=== PATIENT | female | born 1940 | race Caucasian/White ===

== ENCOUNTER 2017-10-15 16:41 | Emergency (ER) | payer MEDICARE, BC ==
[~2017-10-15] VITALS: Ht 165.1 cm; Wt 89.4 kg
[2017-10-15] MEDS ORDERED: SYNTHROID50 MCG PO (16:58)
[2017-10-15] MEDS ORDERED: ALEVE220 MG PO (16:58)
[2017-10-15] MEDS ORDERED: CLARITIN10 MG PO (16:58)
[2017-10-15] MEDS ORDERED: ALLOPURINOL 10100 M1 PO (16:58)
[2017-10-15] MEDS ORDERED: ONDANSETRON HCL4 M2 PO (19:04)
[2017-10-15] MEDS ORDERED: HYDROCODONE-AP1 EAC6 PO (19:04)
[2017-10-15 19:23] VITALS: BP 148/79
== END 2017-10-15 19:24 | disposition home or self-care (01) ==
LOC: M.ERS 16:41
DX: S02.82XA Fracture of other specified skull and facial bones, left side, initial encounter for closed fracture (principal); M25.561 Pain in right knee; M79.645 Pain in left finger(s); M19.90 Unspecified osteoarthritis, unspecified site; Z88.1 Allergy status to other antibiotic agents; Z88.8 Allergy status to other drugs, medicaments and biological substances; W22.8XXA Striking against or struck by other objects, initial encounter; Y93.89 Activity, other specified; Y92.89 Other specified places as the place of occurrence of the external cause; Y99.8 Other external cause status

== ENCOUNTER → 2018-04-17 | Outpatient (CLI) | payer MEDICARE, BC ==
[~2018-04-17] MED LIST: ALEVE220 MG PO; ALLOPURINOL 10100 M1 PO; CLARITIN10 MG PO; HYDROCODONE-AP1 EAC6 PO; ONDANSETRON HCL4 M2 PO; SYNTHROID50 MCG PO
== END ==
LOC: M.RAD 09:53
DX: Z12.31 Encounter for screening mammogram for malignant neoplasm of breast (principal)

== ENCOUNTER → 2019-04-16 | Outpatient (CLI) | payer MEDICARE, BC | LOC: M.RAD 10:19 | DX: Z12.31 Encounter for screening mammogram for malignant neoplasm of breast (principal) ==

== ENCOUNTER → 2019-06-02 | Outpatient (CLI) | payer MEDICARE, BC | LOC: M.MRI 13:25 | DX: S72.001A Fracture of unspecified part of neck of right femur, initial encounter for closed fracture (principal); S76.011A Strain of muscle, fascia and tendon of right hip, initial encounter; M16.0 Bilateral primary osteoarthritis of hip; M76.11 Psoas tendinitis, right hip; M51.36 Other intervertebral disc degeneration, lumbar region; X58.XXXA Exposure to other specified factors, initial encounter; Y93.89 Activity, other specified; Y92.89 Other specified places as the place of occurrence of the external cause; Y99.8 Other external cause status ==

== ENCOUNTER → 2020-04-18 | Outpatient (CLI) | payer MEDICARE, BC | LOC: M.RAD 10:30 | PROVIDERS: ATTEND Internal Medicine | DX: Z12.31 Encounter for screening mammogram for malignant neoplasm of breast (principal) ==

== ENCOUNTER → 2021-04-11 | Outpatient (CLI) | payer MEDICARE, BC | LOC: M.RAD 13:30 | PROVIDERS: ATTEND Internal Medicine | DX: Z12.31 Encounter for screening mammogram for malignant neoplasm of breast (principal); Z90.12 Acquired absence of left breast and nipple; Z85.3 Personal history of malignant neoplasm of breast ==